=== PATIENT | male | born 1970 | race Caucasian/White ===

== ENCOUNTER 2017-11-23 07:43 | Day surgery (SDC) | payer MEDICAID ==
[~2017-11-23] VITALS: Ht 182.9 cm; Wt 67.9 kg
[~2017-11-23 07:43] MED LIST: DOCU-28 PO; LACT1CAP26 PO; MAGN296S50 PO; POLY119P2 PO; SENN8.6T19 PO
[2017-11-23] MEDS ORDERED: normal saline 1000ml 1,000 ML IV SCH ×2 (08:13→08:20)
[2017-11-23] MEDS ORDERED: heparin sodium, porcine/PF 100unit/ml 5ML syringe ONE (08:19)
[2017-11-23] MEDS ORDERED: LIDOcaine 1% (10mg/ml) 2ml vial ONE (08:19)
[2017-11-23] MEDS ORDERED: midazolam 2 mg/2 ml injection IV PRN (08:30)
[2017-11-23] MEDS ORDERED: fentaNYL/PF 50MCG/1 ML 2ML syringe IV PRN (08:30)
[2017-11-23] MEDS ORDERED: LIDOcaine 1%/PF 5ML 10 MG/ML VIAL SQ ONE (08:30)
[2017-11-23] MEDS ORDERED: heparin sodium, porcine/PF 100unit/ml 5ML syringe ICATH ONE (08:30)
[2017-11-23] MEDS ORDERED: fentaNYL/PF 50MCG/1 ML 2ML syringe ONE (08:32)
[2017-11-23] MEDS ORDERED: midazolam 2 mg/2 ml injection ONE (08:32)
[2017-11-23 08:41] LABS: ALBUMIN 2.9 G/DL (3.4-5.0); ANION GAP 11 (8-16); BLOOD UREA NITROGEN 14 MG/DL (7-18); BUN/CREATININE RATIO 19.2 (5.4-32.0); CHLORIDE 103 MMOL/L (99-107); CREATININE 0.73 MG/DL (0.60-1.10); GLUCOSE 92 MG/DL (70-104); POTASSIUM 4.2 MMOL/L (3.5-5.1); SODIUM 139 MMOL/L (135-145); TOTAL CARBON DIOXIDE 25.3 MMOL/L (24-32); eGFR > 90 ML/MIN
[2017-11-23] MEDS ORDERED: LIDOcaine 0.5% (5mg/ml) 50ml vial ONE (08:41)
[2017-11-23 08:56] VITALS: BP 109/78
[2017-11-23] MEDS ORDERED: LIDO30CR23 TOP (09:18)
[2017-11-23] MEDS ORDERED: NICO1PAT36 TOP (09:18)
[2017-11-23] MEDS ORDERED: HYDR-3965 PO (09:18)
[2017-11-23] MEDS ORDERED: DOCU-28 PO (09:18)
[2017-11-23 09:29] LABS: BASOPHILS % (AUTO) 0.5 % (0-1); EOSINOPHILS # (AUTO) 0.7 X10'3 (0-0.9); EOSINOPHILS % (AUTO) 7.6 % (0-6); LYMPHOCYTES # (AUTO) 0.7 X10'3 (1.1-4.8); LYMPHOCYTES % (AUTO) 8.3 % (21-51); MEAN CORPUSCULAR HEMOGLOBIN 28.1 PG (27.0-31.0); MEAN PLATELET VOLUME 7.9 FL (7.4-10.4); MONOCYTES # (AUTO) 0.5 X10'3 (0-0.9); MONOCYTES % (AUTO) 6.2 % (2-12); NEUTROPHILS # (AUTO) 6.8 X10'3 (1.8-7.7); NEUTROPHILS % (AUTO) 77.4 % (42-75); PRE OP HEMATOCRIT 37.7 % (42.0-52.0); PRE OP HEMOGLOBIN 12.5 g/dL (14.0-17.9); PRE OP PLATELET COUNT 444 X10'3 (140-440); RED BLOOD COUNT 4.44 X10'6 (4.70-6.10); RED CELL DISTRIBUTION WIDTH 15.8 % (11.5-14.5)
[2017-11-23 09:37] VITALS: BP 142/94
[2017-11-23 09:45] VITALS: BP 106/76
[2017-11-23 10:00] VITALS: BP 120/54
== END 2017-11-23 10:11 | disposition home or self-care (01) ==
LOC: SSTAY O 07:43
PROVIDERS: ATTEND Radiology Diagnostic Radiology
DX: C19 Malignant neoplasm of rectosigmoid junction (principal); J45.909 Unspecified asthma, uncomplicated; Z98.890 Other specified postprocedural states; Z79.899 Other long term (current) drug therapy
CPT/HCPCS: 36415; 36561; 76937; 77001; 80048; 85025; 99152; 99153; A6219; C1788; C1894; J1642; J2001; J2250; J3010; J7030; J3490

== ENCOUNTER 2018-02-08 06:31 | Day surgery (SDC) | payer MEDICAID ==
[~2018-02-08] VITALS: Ht 182.9 cm; Wt 75.9 kg
[~2018-02-08 06:31] MED LIST changes: +HYDR-3965 PO; -LACT1CAP26 PO; +LIDO30CR23 TOP; -MAGN296S50 PO; +NICO1PAT36 TOP; -POLY119P2 PO; -SENN8.6T19 PO
[2018-02-08] MEDS ORDERED: NO HOME MEDS (07:00)
[2018-02-08 07:13] VITALS: BP 119/84
[2018-02-08] MEDS ORDERED: LIDOcaine 1%/PF 5ML 10 MG/ML VIAL ONE (07:53)
[2018-02-08] MEDS ORDERED: iohexol 300 MG/1 ML 50ml polymer ONE (07:53)
[2018-02-08 08:10] VITALS: BP 134/79
[2018-02-08] MEDS ORDERED: heparin sodium, porcine/PF 100unit/ml 5ML syringe ONE (08:23)
[2018-02-08 08:25] VITALS: BP 126/73
== END 2018-02-08 08:35 | disposition home or self-care (01) ==
LOC: SSTAY O 06:31
PROVIDERS: ATTEND Radiology Diagnostic Radiology
DX: T82.898A Other specified complication of vascular prosthetic devices, implants and grafts, initial encounter (principal); Y83.8 Other surgical procedures as the cause of abnormal reaction of the patient, or of later complication, without mention of misadventure at the time of the procedure; Y92.89 Other specified places as the place of occurrence of the external cause; C19 Malignant neoplasm of rectosigmoid junction; J45.998 Other asthma; F17.210 Nicotine dependence, cigarettes, uncomplicated; F32.9 Major depressive disorder, single episode, unspecified; F41.8 Other specified anxiety disorders; Z90.89 Acquired absence of other organs; Z93.3 Colostomy status; Z90.49 Acquired absence of other specified parts of digestive tract; Z92.21 Personal history of antineoplastic chemotherapy; Z98.890 Other specified postprocedural states
CPT/HCPCS: 36598; J1642; J2001; Q9967

== ENCOUNTER 2020-10-26 16:01 | Emergency (ER) | payer MEDICARE, MEDICAID ==
[~2020-10-26] VITALS: Ht 182.9 cm; Wt 71.8 kg
[~2020-10-26 16:01] MED LIST changes: -DOCU-28 PO; -HYDR-3965 PO; -LIDO30CR23 TOP; -NICO1PAT36 TOP; +NO HOME MEDS
[2020-10-26 16:09] VITALS: BP 134/80
[2020-10-26] MEDS ORDERED: ketorolac trometh. 30mg/ml inj. IM ONE (19:30)
== END 2020-10-26 19:42 | disposition home or self-care (01) ==
LOC: ER 16:02
DX: S39.012A Strain of muscle, fascia and tendon of lower back, initial encounter (principal); X50.0XXA Overexertion from strenuous movement or load, initial encounter; Y93.89 Activity, other specified; Y92.89 Other specified places as the place of occurrence of the external cause; Y99.8 Other external cause status
CPT/HCPCS: 96372; 99283; J1885

== ENCOUNTER 2021-03-07 15:57 | Emergency (ER) | payer MEDICARE, MEDICAID ==
[2021-03-07 18:06] VITALS: BP 113/71
== END 2021-03-07 20:09 | disposition left against medical advice (07) ==
LOC: ER 15:58
DX: R10.9 Unspecified abdominal pain (principal); Z53.21 Procedure and treatment not carried out due to patient leaving prior to being seen by health care provider

== ENCOUNTER 2024-05-06 11:22 | Emergency (ER) | payer MEDICAID, MEDICARE ==
[~2024-05-06] VITALS: Ht 182.9 cm; Wt 82.6 kg
[2024-05-06 11:34] VITALS: BP 137/78; PULSE 62; O2SAT 97
[2024-05-06] MEDS: LIDOcaine 5% patch TP STA (13:20)
[2024-05-06] MEDS ORDERED: LIDO700A32 TD (13:47)
[2024-05-06] MEDS ORDERED: IBUP-1984 PO (13:47)
[2024-05-06 13:59] VITALS: RESP 16; TEMP 98
== END 2024-05-06 13:55 | disposition home or self-care (01) ==
LOC: ER 11:22
DX: M25.511 Pain in right shoulder (principal); F17.210 Nicotine dependence, cigarettes, uncomplicated
CPT/HCPCS: 73030; 99283

== ENCOUNTER 2024-06-03 11:27 | Emergency (ER) | payer MEDICAID ==
[~2024-06-03] VITALS: Ht 177.8 cm; Wt 81.8 kg
[~2024-06-03 11:27] MED LIST changes: +LIDO700A32 TD
[2024-06-03 11:36] VITALS: TEMP 97
[2024-06-03 12:09] LABS: BASOPHILS % (AUTO) 0.6 % (0-1); EOSINOPHILS # (AUTO) 0.2 X10'3 (0-0.9); EOSINOPHILS % (AUTO) 3.2 % (0-6); HEMATOCRIT 43.1 % (42.0-52.0); LYMPHOCYTES # (AUTO) 1.4 X10'3 (1.1-4.8); LYMPHOCYTES % (AUTO) 23.7 % (21-51); MEAN CORPUSCULAR HEMOGLOBIN 30.7 PG (27.0-31.0); MEAN CORPUSCULAR HGB CONC 34.9 g/dL (33.0-36.5); MEAN CORPUSCULAR VOLUME 88.1 FL (78-98); MEAN PLATELET VOLUME 7.9 FL (7.4-10.4); MONOCYTES # (AUTO) 0.2 X10'3 (0-0.9); MONOCYTES % (AUTO) 2.6 % (2-12); NEUTROPHILS # (AUTO) 4.2 X10'3 (1.8-7.7); NEUTROPHILS % (AUTO) 69.9 % (42-75); PLATELET COUNT 251 X10'3 (140-440); RED BLOOD COUNT 4.89 X10'6 (4.70-6.10); RED CELL DISTRIBUTION WIDTH 13.6 % (11.5-14.5)
[2024-06-03 12:17] LABS: ALBUMIN 3.7 G/DL (3.4-5.0); ANION GAP 5 (8-16); BLOOD UREA NITROGEN 13 MG/DL (7-18); CALCIUM 8.5 MG/DL (8.5-10.1); CHLORIDE 108 MMOL/L (99-107); CREATININE 0.93 MG/DL (0.60-1.10); GLUCOSE 174 MG/DL (70-104); SODIUM 140 MMOL/L (135-145); TOTAL CARBON DIOXIDE 26.7 MMOL/L (24-32); eCRCL 93 ML/MIN; eGFR 84 ML/MIN
[2024-06-03] MEDS: ketorolac trometh 15mg/ml vial 15 MG/ML ML IV ONE (13:00)
[2024-06-03 13:37] VITALS: BP 139/94; PULSE 112; RESP 16; O2SAT 95
== END 2024-06-03 13:39 | disposition home or self-care (01) ==
LOC: ER 11:28 → EEVIPCON 11:28 → ER 13:39
DX: R07.81 Pleurodynia (principal); I10 Essential (primary) hypertension; F17.210 Nicotine dependence, cigarettes, uncomplicated; Z79.899 Other long term (current) drug therapy; Y04.0XXA Assault by unarmed brawl or fight, initial encounter; Y93.89 Activity, other specified; Y92.89 Other specified places as the place of occurrence of the external cause; Y99.8 Other external cause status
CPT/HCPCS: 36415; 80048; 84145; 84484; 85025; 93005; 96374; 99284; J1885

== ENCOUNTER 2024-08-11 10:56 | Emergency (ER) | payer MEDICAID ==
[~2024-08-11] VITALS: Ht 182.9 cm; Wt 81.9 kg
[~2024-08-11 10:56] MED LIST changes: +LIDO-52 TD; -LIDO700A32 TD
[2024-08-11 12:17] LABS: BASOPHILS % (AUTO) 0.5 % (0-1); EOSINOPHILS # (AUTO) 0.4 X10'3 (0-0.9); EOSINOPHILS % (AUTO) 4.7 % (0-6); HEMATOCRIT 38.8 % (42.0-52.0); HEMOGLOBIN 13.2 g/dl (14.0-17.9); LYMPHOCYTES # (AUTO) 1.7 X10'3 (1.1-4.8); LYMPHOCYTES % (AUTO) 19.7 % (21-51); MEAN CORPUSCULAR HEMOGLOBIN 30.8 PG (27.0-31.0); MEAN CORPUSCULAR VOLUME 90.6 FL (78-98); MEAN PLATELET VOLUME 8.1 FL (7.4-10.4); MONOCYTES # (AUTO) 0.5 X10'3 (0-0.9); MONOCYTES % (AUTO) 6.2 % (2-12); NEUTROPHILS % (AUTO) 68.9 % (42-75); PLATELET COUNT 306 X10'3 (140-440); RED BLOOD COUNT 4.29 X10'6 (4.70-6.10); RED CELL DISTRIBUTION WIDTH 14.1 % (11.5-14.5); WHITE BLOOD COUNT 8.8 X10'3 (4.5-11.0)
[2024-08-11 12:33] LABS: ALANINE AMINOTRANSFERASE 32 U/L (12-78); ALBUMIN 3.6 G/DL (3.4-5.0); ALBUMIN/GLOBULIN RATIO 1.1 (1.1-1.5); ALKALINE PHOSPHATASE 81 IU/L (46-116); ANION GAP 5 (8-16); ASPARTATE AMINO TRANSFERASE 23 U/L (10-37); BILIRUBIN,TOTAL 0.6 MG/DL (0.1-1.0); BLOOD UREA NITROGEN 16 MG/DL (7-18); BUN/CREATININE RATIO 19.8 (10.0-20.0); CALCIUM 8.6 MG/DL (8.5-10.1); CHLORIDE 107 MMOL/L (99-107); CREATININE 0.81 MG/DL (0.60-1.10); GLUCOSE 88 MG/DL (70-104); SODIUM 141 MMOL/L (135-145); TOTAL CARBON DIOXIDE 29.2 MMOL/L (24-32); TOTAL PROTEIN 6.9 G/DL (6.4-8.2); eCRCL 112 ML/MIN; eGFR > 90 ML/MIN
[2024-08-11] MEDS: ketorolac trometh 30MG/ML vial 30 MG/ML VIAL IM ONE (14:04)
[2024-08-11] MEDS: diphenhydrAMINE 25mg capsule PO ONE (14:04)
[2024-08-11] MEDS ORDERED: CLIN-214 PO (14:34)
--- NOTE | 2024-08-11 14:34 | Physician Documentation ---
History of Present Illness ~ General Chief Complaint: Abscess Stated Complaint: LEFT HAND SWOLLEN Time Seen by MD: 11:26 Primary Medical Doctor: NONE History of Present Illness Initial Comments 54 year old male reports L hand pain/swelling since this morning with the development of a "boil" to the dorsum of the hand as well. Denies injury to the hand, as well as fevers, N/V/D. The hand itches and hurts. Medication Reconciliation Allergies: Coded Allergies: No Known Allergies (Unverified , 02/02/09) Scheduled Lidocaine (Lidoderm), 1 PATCH TD DAILY Miscellaneous Medications Home Med List (No Home Medications), (Reported) Past Medical History Past Medical History: Hypertension, Constipation Past Surgical History: no surgical history Alcohol Use: None Drug Use: none Lives In: Home Occupation: employed Review of Systems All Other Systems at this time: Reviewed and Negative Physical Exam Physical Exam Vital Signs: RN Vital Signs have been reviewed: Yes, Temperature: 98.2, Source: Temporal, Heart Rate: 72, Respiratory Rate: 16, BP: 134/87, Pulse Oximetry: 97, Weight: 81.900 Physical Exam HEENT: PERRL, moist oral mucosa, EOMI Pulmonary: No respiratory distress MSK: no deformity Skin: w/d/i, no rash; L hand with diffuse swelling, warmth, and edema, with small serosanguinous vesicle 0.5mm to dorsum between 3rd and 4th digit at MCP joint. No purulence. Neuro: alert, nonfocal Psych: normal affect Progress Results/Orders Results/Orders Orders - JUVENTINO LIN MD Hand,Limited (Ap/Lat) (08/11/24 13:18) Clindamycin Capsule (Cleocin Capsule) (08/11/24 14:30) Completed Orders - JUVENTINO LIN MD Cbc/Diff (08/11/24 11:28) CMP (08/11/24 11:28) Hand,Limited (Ap/Lat) (08/11/24 13:18) Diphenhydramine Capsule (Benadryl Capsul (08/11/24 13:45) Ketorolac Trometh 30mg/Ml Vial (Toradol (08/11/24 13:45) Medications Received in ER Medications (Trade) Dose Ordered Sig/Ирина Route PRN Reason Start Time Stop Time Status Last Admin Dose Admin (Benadryl capsule) 25 mg ONCE ONCE PO 08/11/24 13:45 08/11/24 13:46 DC 08/11/24 14:04 25 MG (Toradol inj. 30mg/ml) 30 mg ONCE ONCE IM 08/11/24 13:45 08/11/24 13:46 DC 08/11/24 14:04 30 MG Vital Signs 08/11/24 08/11/24 11:01 14:22 Temp 98.2 Pulse 72 Resp 16 16 B/P (MAP) 134/87 Pulse Ox 97 Laboratory Tests Test 08/11/24 11:59 White Blood Count 8.8 Red Blood Count 4.29 L Hemoglobin 13.2 L Hematocrit 38.8 L Mean Corpuscular Volume 90.6 Mean Corpuscular Hemoglobin 30.8 Mean Corpuscular Hemoglobin Concent 34.0 Red Cell Distribution Width 14.1 Platelet Count 306 Mean Platelet Volume 8.1 Neutrophils (%) (Auto) 68.9 Lymphocytes (%) (Auto) 19.7 L Monocytes (%) (Auto) 6.2 Eosinophils (%) (Auto) 4.7 Basophils (%) (Auto) 0.5 Neutrophils # (Auto) 6.0 Lymphocytes # (Auto) 1.7 Monocytes # (Auto) 0.5 Eosinophils # (Auto) 0.4 Basophils # (Auto) 0.0 CBC Comment Sodium Level 141 Potassium Level 4.0 Chloride Level 107 Carbon Dioxide Level 29.2 Anion Gap 5 L Blood Urea Nitrogen 16 Creatinine 0.81 Estimated GFR/1.73 m2 > 90 BUN/Creatinine Ratio 19.8 Glucose Level 88 Calcium Level 8.6 Total Bilirubin 0.6 Aspartate Amino Transf (AST/SGOT) 23 Alanine Aminotransferase (ALT/SGPT) 32 Alkaline Phosphatase 81 Total Protein 6.9 Albumin 3.6 Globulin 3.3 Albumin/Globulin Ratio 1.1 Chemistry Comments Medical Decision Making Findings 54 year old male with swollen, painful, itching hand. Labs unremarkable, will treat empirically as cellulitis with ABx, return precautions. Differential Diagnosis Ddx = cellulitis, fracture, shingles, contact dermatitis Departure Disposition: HOME / SELF CARE / HOMELESS Impression: Primary Impression: Cellulitis Discharge Instructions: Cellulitis, Adult, [id number] Referrals: NO PRIMARY CARE PROVIDER (PCP) Prescriptions Clindamycin HCl (Clindamycin HCl CAPSULE) 150 Mg Capsule 1 CAP PO TID for 7 Days, #21 CAP Prov: JUVENTINO LIN MD 08/11/24 Education Educated: Patient Educated regarding: diagnosis, treatment, prognosis, need for follow up Signature Scribe Signature: . Attestation: . JUVENTINO LIN MD Aug 11, 2024 14:34
[2024-08-11] MEDS: clindamycin 150mg capsule PO ONE (14:54)
[2024-08-11 14:57] VITALS: BP 122/72; PULSE 64; RESP 14; TEMP 98.5; O2SAT 99
--- NOTE | 2024-08-14 08:49 | RADIOLOGY REPORT ---
CLINICAL INDICATION: swelling and pain TECHNIQUE: 3 views of the left hand were performed. DI HAND,LIMITED (AP/LAT) Comparison: None FINDINGS/IMPRESSION: 1. No acute fracture or dislocation of the left hand. 2. No significant degenerative changes or radiopaque foreign bodies in the soft tissues.
== END 2024-08-11 15:01 | disposition home or self-care (01) ==
LOC: ER 10:56
DX: L03.114 Cellulitis of left upper limb (principal); I10 Essential (primary) hypertension; Z79.899 Other long term (current) drug therapy
CPT/HCPCS: 36415; 73120; 80053; 85025; 96372; 99284; J1885; Q0163

== ENCOUNTER 2024-12-01 10:13 | Outpatient (CLI) | payer MEDICAID ==
[~2024-12-01 10:13] MED LIST changes: -LIDO-52 TD
--- NOTE | 2024-12-01 11:56 | RADIOLOGY REPORT ---
CLINICAL HISTORY: rt flank pain TECHNIQUE: Complete ultrasound exam of the kidneys and bladder was performed. COMPARISON: CT CT ABDOMEN PELVIS on DOS: 10/01/24, DI ABDOMEN,SINGLE VIEW(KUB) on DOS: 09/30/24, CT CT ABDOMEN PELVIS on DOS: 09/30/24 FINDINGS: The right kidney has normal echogenicity and measures 11.1 cm. There is a 2.6 cm cyst with no evidence for stone. There is no hydronephrosis. The left kidney has normal echogenicity and measures 9.8 cm. There is no focal parenchymal abnormality or evidence for stone. There is no hydronephrosis. The bladder is distended with a volume of 408 mL. There is no focal wall thickening. IMPRESSION: NO SIGNIFICANT SONOGRAPHIC ABNORMALITY OF THE KIDNEYS.
--- NOTE | 2024-12-01 17:50 | RADIOLOGY REPORT ---
EXAM: CT CT CHEST LOW DOSE INDICATION: ENCNTR SCREEN FOR MALIGNANT NEOPLASM OF LUNG TECHNIQUE: Low-dose noncontrast CT of the lungs have been obtained. All CT scans at this facility use dose modulation, iterative reconstruction, and/or weight based dosing when appropriate to reduce radiation dose to as low as reasonably achievable. COMPARISON: DI CHEST,SINGLE VIEW on DOS: 09/30/24 FINDINGS: LOWER NECK: Unremarkable LYMPH NODES/MEDIASTINUM: No abnormal lymph nodes by CT size criteria CARDIOVASCULAR: Normal cardiac size. No pericardial effusion. No aneurysmal dilatation of the great vessels. No significant coronary artery calcifications. UPPER ABDOMEN: Limited evaluation secondary to photon starvation. Dohw-fa-wwezhcgw stool burden. MUSCULOSKELETAL: Multilevel degenerative change of the visualized spine. No acute fracture or aggressive focal osseous lesion. CHEST WALL: Unremarkable. LUNG/PLEURAL SPACE: No consolidation, suspicious focal airspace opacity, or suspicious nodules. No pleural effusion or pneumothorax. IMPRESSION: 1. No CT evidence of an acute intrathoracic process. LUNG-RADS: 1- Negative RECOMMENDATION: Annual low dose lung screening CT is recommended for 15 years after smoking cessation or until age 77. CITATION: Lung cancer screening categorization and recommendations per [employer] Lung-RADS Version 1.0 (http://www.acr.org/Quality- Safety/Resources/LungRADS).
== END 2024-12-01 23:59 | disposition home or self-care (01) ==
LOC: RAD 10:13
PROVIDERS: ATTEND Student in an Organized Health Care Education/Training Program
DX: Z12.2 Encounter for screening for malignant neoplasm of respiratory organs (principal); R41.3 Other amnesia; R10.9 Unspecified abdominal pain; M47.814 Spondylosis without myelopathy or radiculopathy, thoracic region; Z87.891 Personal history of nicotine dependence
CPT/HCPCS: 71271; 76770

== ENCOUNTER 2024-12-06 08:37 | Outpatient (CLI) | payer MEDICAID ==
--- NOTE | 2024-12-06 09:46 | RADIOLOGY REPORT ---
CLINICAL HISTORY: AMNESIA TECHNIQUE: Routine multiplanar imaging of the brain was performed without gadolinium contrast. COMPARISON: None FINDINGS: There is no abnormal restricted diffusion to suggest acute infarction. There are a few punctate foci of hyperintensity within the white matter of both cerebral hemispheres, of doubtful clinical significance. There is no evidence for acute ischemic changes, mass, mass effect, or extra- axial fluid collection. There is no hydrocephalus or midline shift. The cerebral sulci and subarachnoid cisterns are not effaced. The imaged paranasal sinuses demonstrate a right maxillary sinus mucous retention cyst. The globes are intact. The midline structures, including the corpus callosum, are unremarkable. The intracranial flow voids are maintained. IMPRESSION: No acute intracranial abnormality seen. No evidence for acute infarct.
== END 2024-12-06 23:59 | disposition home or self-care (01) ==
LOC: MRI 08:37
PROVIDERS: ATTEND Student in an Organized Health Care Education/Training Program
DX: R41.3 Other amnesia (principal); R10.9 Unspecified abdominal pain; B35.3 Tinea pedis; Z85.048 Personal history of other malignant neoplasm of rectum, rectosigmoid junction, and anus; Z28.21 Immunization not carried out because of patient refusal; Z79.899 Other long term (current) drug therapy
CPT/HCPCS: 70551

== ENCOUNTER 2025-01-18 00:19 | Emergency (ER) | payer MEDICAID ==
[~2025-01-18] VITALS: Ht 182.9 cm; Wt 85.3 kg
--- NOTE | 2025-01-18 00:57 | RADIOLOGY REPORT ---
CHEST RADIOGRAPH Indication: CP Technique: Single frontal view of the chest was obtained COMPARISON: DI CHEST,SINGLE VIEW on DOS: 09/30/24 FINDINGS: Lines and Tubes: None Lungs: Clear Pleura: No effusion. No pneumothorax. Cardiomediastinal contours: Unremarkable Bones: Unremarkable IMPRESSION: 1. No acute disease.
[2025-01-18 01:02] LABS: MEAN PLATELET VOLUME 8.1 FL (7.4-10.4); RED CELL DISTRIBUTION WIDTH 14.1 % (11.5-14.5)
[2025-01-18 01:24] LABS: CREATININE 0.78 MG/DL (0.60-1.10); PRO BRAIN NATRIURETIC PEPTIDE < 30 PG/ML (0-125); TOTAL CARBON DIOXIDE 24.5 MMOL/L (24-32); eCRCL 116 ML/MIN; eGFR > 90 ML/MIN
[2025-01-18 01:31] LABS: LEUKOCYTE ESTERASE ,URINE NEGATIVE (Neg); NITRITES, URINE NEGATIVE (Neg); OCCULT BLOOD,URINE NEGATIVE (Neg)
[2025-01-18 01:33] LABS: UA COLLECTION TYPE NON-SPECIFIED
--- NOTE | 2025-01-18 06:20 | Physician Documentation ---
History of Present Illness ~ Chief Complaint: Chest Pain Stated Complaint: CHEST DISCOMFORT Time Seen by MD: 06:06 Primary Medical Doctor: NONE Mode of Arrival: POV [facility] 54 years old patient with a history of rectal cell carcinoma status post surgical therapy with colostomy came to the emergency room last night for the chest pain in the right side of the chest that radiates to the middle and the pain is sharp in nature intermittent and has been going on for a couple of days without nausea vomiting or shortness a breath. Patient has not been taking any regular medications and he is not diabetic or hypertensive. He does smoke one pack a day. Know his family history of coronary artery disease. The pain is nonexertional. Medication Reconciliation Allergies: Coded Allergies: No Known Allergies (Unverified , 01/18/25) Miscellaneous Medications Home Med List (No Home Medications), (Reported) Past Medical History Past Medical History: Hypertension, Constipation Past Surgical History: no surgical history Patient History: FH: hepatic cirrhosis MOTHER, , Age: 68, Cause: COPD exacerbation Smoking Status: Current every day smoker Alcohol Use: None Drug Use: none Lives In: Home Occupation: employed Review of Systems ROS As stated above in the HPI, otherwise all systems are reviewed and negative. Physical Exam Vital Signs: Temperature: 97.8, Heart Rate: 75, Respiratory Rate: 14, BP: 102/ 71, Pulse Oximetry: 99, Weight: 85.300 Physical Exam Reviewed vital signs and they are well within normal range. Const: Not in acute cardiopulmonary distress Head: Atraumatic Eyes: Normal Conjunctiva ENT: Normal External Ears, Nose and Mouth. Moist mucous membranes Neck: Full range of motion. No meningismus Resp: Clear to auscultation bilaterally. Normal work of breathing Cardio: Heart rate 68/minutes. Regular rate and rhythm, no murmurs. Skin well perfused Abd: Soft, non-tender, non-distended. Normal bowel sounds. No rebound or guarding Skin: No petechiae or rashes. Warm and dry Back: No midline or flank tenderness Ext: No cyanosis, or edema Neuro: Awake and alert Psych: Normal Mood and Affect Procedures Additional Procedures Additional Procedure Note ED MD interpretation of EKG done at 00:33 hours shows sinus rhythm at a rate of 80 with right superior axis normal intervals and no ischemic changes. Progress Results/Orders Results/Orders Vital Signs 01/18/25 01/18/25 01/18/2527/25 00:20 00:46 02:00 05:49 Temp 97.8 Pulse 88 76 72 75 Resp 13 14 15 14 B/P (MAP) 140/76 116/71 (86) 100/72 (81) 102/71 (81) Pulse Ox 99 96 99 99 Laboratory Tests Test 01/18/25 00:25 01/18/25 00:50 01/18/25 02:37 Urine Specimen Description Non-specified Urine Color Yellow Urine Clarity Clear Urine pH 6.5 Urine Specific [place] 1.010 Urine Protein Negative Urine Glucose (UA) Negative Urine Ketones Negative Urine Occult Blood Negative Urine Nitrite Negative Urine Bilirubin Negative Urine Urobilinogen 0.2 Urine Leukocyte Esterase Negative Urine Culture Indicated Not ind Volume Urine Centrifuged 10 ml Urine Comment White Blood Count 7.9 Red Blood Count 4.60 L Hemoglobin 14.3 Hematocrit 41.3 L Mean Corpuscular Volume 89.8 Mean Corpuscular Hemoglobin 31.2 H Mean Corpuscular Hemoglobin Concent 34.7 Red Cell Distribution Width 14.1 Platelet Count 271 Mean Platelet Volume 8.1 Neutrophils (%) (Auto) 69.7 Lymphocytes (%) (Auto) 19.0 L Monocytes (%) (Auto) 5.6 Eosinophils (%) (Auto) 5.3 Basophils (%) (Auto) 0.4 Neutrophils # (Auto) 5.5 Lymphocytes # (Auto) 1.5 Monocytes # (Auto) 0.4 Eosinophils # (Auto) 0.4 Basophils # (Auto) 0.0 CBC Comment Sodium Level 140 Potassium Level 4.2 Chloride Level 107 Carbon Dioxide Level 24.5 Anion Gap 9 Blood Urea Nitrogen 14 Creatinine 0.78 Estimated GFR/1.73 m2 > 90 BUN/Creatinine Ratio 17.9 Glucose Level 120 H Calcium Level 8.4 L Troponin I High Sensitivity 4 4 Pro-B-Type Natriuretic Peptide < 30 Albumin 3.7 Chemistry Comments Troponin I High Sens Percent Delta 0 Troponin I Hi Sens Absolute Change 0 Medical Decision Making Additional information obtaine: old records Findings During the physical examination, the findings suggestive of acute life- threatening condition such as JVD, tracheal deviation, acidotic breathing, noisy stridorous breath sounds, pulses paradoxus, muffled heart sounds, unequal breath sounds, abdominal rigidity and rebound tenderness, focal neurological deficits, cool clammy skin, severe hypotension, severe tachycardia or bradycardia are absent. Physical examination is unremarkable. CBC and BMP are well within normal range and two serial cardiac enzyme is four. UA is unremarkable and chest x-ray is negative for acute diseases. Patient is low risk for coronary artery disease except for his smoking. I conveyed the finding to the patient and we came to the shared decision-making that he will be discharged home with lifestyle modifications such as quitting smoking and regular exercise. Patient does not have identifiable emergent medical condition that warrants inpatient medical care at this time. The patient is deemed safe for discharge with outpatient follow up. The patient will be discharged home with aftercare instructions. DISCLAIMER Inadvertent spelling and grammatical errors,inadvertent customer service technician errors,syntax errors, grammatical errors, and spelling errors are likely due to EMR/dictation software use and do not reflect on the overall quality of patient care. Note that the electronic time recorded on this note does not necessarily reflect the actual time of the patient encounter. Heart Score: 2 Differential Dx:Considerations: Include: angina, aortic dissection, chest wall pain, costochondritis, esophageal reflux/spasm, myocardial infarction, pericarditis, pleuritis, pneumonia, pneumothorax Departure Disposition: 01 HOME / SELF CARE / HOMELESS Impression: Primary Impression: Nonspecific chest pain Condition: Improved Discharge Instructions: Nonspecific Chest Pain, Adult Additional Instructions: Thank you for coming to our Emergency Department today. Please gradually cut down smoking and eventually quit. Take Tylenol extra strength one tablet together with ibuprofen 200 mg one tablet every 6 hours as needed for pain. Please ask your nurse or provider if you have questions about your care today and do not leave until all your questions have been answered. Please use any medications given as directed and follow-up with your doctor (or the doctor you were referred to) in the next 1-3 days. Your primary care doctor can help to coordinate outpatient specialty care and provide authorization for specialty referral as needed. If you do not have a primary care doctor you may follow up at a [facility] facility. You may also use motrin and tylenol as needed for fever and/or pain unless instructed otherwise by your provider or nurse. Indications for more urgent follow-up have been discussed, but you may return to the Emergency Department at ANY time for any worrisome or worsening symptoms. [facility] Facilities: [facility] Facilities: [facility]: Main [place] Address:[address] [place], [place] [id number] [facility]: [place] Address:[address] [place] [address] [facility]: Telemedicine Address:[address] [place] [address] [facility] Address:[address] [place] [address] Registration Billing Pharmacy Referrals [facility] Address:[facility] [place] [address] Referrals: NO PRIMARY CARE PROVIDER (PCP) Signature Scribe Signature: X Attestation: NANCY MENDOSA MD Jan 18, 2025 06:20
--- NOTE | 2025-01-18 06:23 | ELECTROCARDIOGRAPH REPORT ---
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 Dorothy Lake Measurements Intervals [place] Rate: 80 P: 49 AL: 129 QRS: 244 QRSD: 90 T: 26 QT: 346 QTc: 400 Interpretive Statements Sinus rhythm Right superior axis Baseline wander in lead(s) V4,V5,V6 Electronically Signed On 01-18-2025 6:44:[address] Dorothy Lake Please click the below link to view image of tracing.
[2025-01-18 06:32] VITALS: BP 99/66; PULSE 62; RESP 18; TEMP 97.8; O2SAT 96
== END 2025-01-18 06:38 | disposition home or self-care (01) ==
LOC: ER 00:19
DX: R07.9 Chest pain, unspecified (principal); F17.210 Nicotine dependence, cigarettes, uncomplicated; I10 Essential (primary) hypertension; Z85.048 Personal history of other malignant neoplasm of rectum, rectosigmoid junction, and anus
CPT/HCPCS: 36415; 71045; 80048; 81003; 83880; 84484; 85025; 93005; 99285